=== PATIENT | female | born 1990 | race Caucasian/White ===

== ENCOUNTER → 2022-04-17 10:03 | Outpatient (BNVA) | payer SELFPAY | PROVIDERS: Family Provider Family Medicine; PCP Registered Nurse; Visit Provider Dermatology | DX: Z13.6 Encounter for screening for cardiovascular disorders (principal) | CPT/HCPCS: 80061; 82947; 83036 ==

== ENCOUNTER → 2022-07-10 08:43 | Outpatient (BNVA) | payer SELFPAY | PROVIDERS: Family Provider Family Medicine; PCP Registered Nurse; Visit Provider Registered Nurse | DX: E11.9 Type 2 diabetes mellitus without complications (principal) | CPT/HCPCS: 83036 ==

== ENCOUNTER 2023-10-11 06:41 | Day surgery (SDC) | payer BC, SELFPAY ==
[2023-10-11 07:10] VITALS: BP 132/85; PULSE 82; RESP 18; TEMP 36.5; O2SAT 100
[2023-10-11 07:11] VITALS: BMI 35.5
[2023-10-11] MEDS: sodium chloride 0.9% 1,000 ML 30 ML IV (07:17)
[2023-10-11 07:25] LABS: OR HCG Qualitative Urine Negative (Negative)
[2023-10-11 07:26] LABS: Glucose Point of Care 103 mg/dL (70-110)
--- NOTE | 2023-10-11 07:28 | ANES.PREANE2 ---
Pre-Anesthetic Assessment Height/Weight: Height 1.68 m Weight 99.79 kg Temp Pulse Resp BP Pulse Ox O2 Del Method 97.7 F 82 18 132/85 100 Room Air 10/11/23 07:10 10/11/23 07:10 10/11/23 07:10 10/11/23 07:10 10/11/23 07:10 10/11/23 07:10 Preop Diagnosis: Hematochezia Operation Date: 10/11/23 08:00 Proposed Procedures p Colonoscopy(Not Applicable) - Broderick Brandon DO Familial anesthetic complications: none Was Beta Sherice taken within 24 hours: N/A Was Clonidine taken within 24 hours: N/A Last intake: Intake Last Liquid Date 10/10/23 Last Liquid Time 23:30 Last Solid Date 10/09/23 Last Solid Time 17:00 Social No alcohol and No tobacco Exam alert, oriented x 3, clear to auscultation bilaterally and regular rate & rhythm Airway Submandibular: within normal limits Cervical ROM: within normal limits Mallampati: Class I Dentition: full Pulmonary Asthma CV/HEM None reported None reported Hepatic None reported GI None reported Metabolic Diabetes Mellitus (type 2 NIDDM) and Morbid Obesity GLP1 held x 7 days denies GERD. Musc/skel None reported Neuropsych None reported Anesthetic Plan ASA status: 2 Anesthesia: MAC Medications/Allergies Home Medications Medication Instructions Recorded Confirmed Last Taken Type tirzepatide 2.5 mg/0.5 mL 2.5 mg (0.5 mL) SUBCUT .weekly 09/05/23 10/09/23 10/04/23 Rx subcutaneous pen injector days #2 mL (Mounjaro) Allergies Allergy/AdvReac Type Severity Reaction Status Date / Time cefaclor [From Ceclor] Allergy ALGY-Rash Verified 10/09/23 12:02 Current Medications Generic Name Dose Route Start Last Admin Trade Name Freq PRN Reason Stop Dose Admin Sodium Chloride 1,000 mls @ 30 mls/hr 10/11/23 07:00 10/11/23 07:17 Sodium Chloride 0.9% IV 10/12/23 06:59 30 mls/hr .Q24H GODFREY Administration PFSH Anesthesia Medical History (Updated 09/21/23 @ 10:13 by Broderick Brandon DO) Family history of colon cancer Family history of diabetes mellitus Family History Father Cancer rectal Mother Diabetes Hyperlipidemia Brother Hypertension Sister Hypertension Denies family history of CAD (coronary artery disease) Clotting disorder Dementia Chronic kidney disease (CKD) Lung disease Stroke Social History Smoking and tobacco/nicotine status: never used tobacco/nicotine Alcohol intake: never Substance/Drug Use: never Adopted: No Caregiver/support person: No Lives independently: No Household members: spouse Marital status: service: No Current occupational status: employed Sexually active: Yes Do you think of yourself as: Straight/Heterosexual Current gender identity: Female Data Anesthesia Cardiac Studies: No Data to Display
--- NOTE | 2023-10-11 07:56 | W.PM.OPSUD ---
Surgery/Procedure H&P Update DATE OF PROCEDURE: October 11, 2023 DATE H&P PERFORMED: 09/21/23 H&P UPDATE INFORMATION: I have reviewed H&P completed within last 30 days, I have examined patient prior to procedure and No changes to prior documentation PREOP DIAGNOSIS: Hematochezia PLANNED PROCEDURE: Operation Date: 10/11/23 08:00 Proposed Procedures p Colonoscopy(Not Applicable) - Broderick Brandon DO
[2023-10-11 08:21] VITALS: BP 101/61; PULSE 83; RESP 18; TEMP 36.1; O2SAT 97
[2023-10-11 08:38] VITALS: BP 127/70; PULSE 80; RESP 16; O2SAT 97
--- NOTE | 2023-10-11 09:05 | ANE.PACU2 ---
Inpatient post-anesthesia follow up: Airway intact: Yes Vital signs: Temperature 97 F Pulse Rate 80 Respiratory Rate 16 Blood Pressure 127/70 Pulse Oximetry 97 Oxygen Delivery Me thod Room Air Oxygen Flow Rate Fraction of Inspir ed Oxygen Hydration adequate: Yes Nausea and vomiting: No Pain level: 1 Mental status: Baseline
== END 2023-10-11 09:05 | disposition home or self-care (01) ==
PROVIDERS: Family Provider Family Medicine; PCP Registered Nurse; Visit Provider Surgery
PROC: 0DJD8ZZ Inspection of Lower Intestinal Tract, Via Natural or Artificial Opening Endoscopic (ICD-10-PCS; CPT 45378; principal; 2023-10-11 08:00)
DX: K92.1 Melena (principal); J45.909 Unspecified asthma, uncomplicated; E11.9 Type 2 diabetes mellitus without complications; E66.01 Morbid (severe) obesity due to excess calories; Z68.35 Body mass index [BMI] 35.0-35.9, adult; Z80.0 Family history of malignant neoplasm of digestive organs
CPT/HCPCS: 36416; 45378; 81025; 82962; J2704; J7030

== ENCOUNTER → 2024-01-08 15:34 | Outpatient (BNVA) | payer BC, SELFPAY | PROVIDERS: Family Provider Family Medicine; PCP Registered Nurse; Visit Provider Registered Nurse | DX: E11.9 Type 2 diabetes mellitus without complications (principal); E66.9 Obesity, unspecified | CPT/HCPCS: 80053; 82607; 83036 ==

== ENCOUNTER → 2024-07-10 15:11 | Outpatient (BNVA) | payer BC, SELFPAY | PROVIDERS: PCP Registered Nurse; Visit Provider Registered Nurse | DX: E11.9 Type 2 diabetes mellitus without complications (principal) | CPT/HCPCS: 83036 ==

== ENCOUNTER → 2024-11-27 14:38 | Outpatient (BNVA) | payer BC, SELFPAY | PROVIDERS: PCP Registered Nurse; Visit Provider Registered Nurse | DX: E11.9 Type 2 diabetes mellitus without complications (principal) | CPT/HCPCS: 80053; 80061; 83036; 85025 ==